=== PATIENT | male | born 1965 | race Hispanic/Latino ===

== ENCOUNTER 2018-10-23 08:33 | Emergency (ER) | payer SELFPAY ==
--- OUTSIDE RECORDS SUMMARY | 2018-10-23 08:35 | XMS REPORT | Clinical Summary ---
:1965 Author Organization [facility] Address [address] [place] [address] Care Team Providers Name Role Phone Unavailable Primary Care Provider Unavailable Allergies No Known Allergies Medications Medication Sig Dispensed Refills Start Date End Date Status Gel Dressing Apply 1 30 Each 0 05/11/2018 Active (DERMAGAUZE HYDROGEL Application to DRESSING) 4 X 4 " affected area BndgIndications: daily. Diabetic ulcer of midfoot associated with diabetes mellitus due to underlying condition, with other ulcer severity, unspecified laterality cycloSPORINE in Instill 2 Drops 30 mL 0 05/11/2018 Active polyvinyl alcohol in right eye 5 ophthalmic solution times daily as ophthalmic solution needed (red eye -CMPDIndications: irritation). Dry eyes, bilateral amoxicillin-clavulan Take 1 tablet by 28 tablet 3 04/23/2018 07/12/2018 ate (AUGMENTIN) mouth 2 times 875-125 mg per daily for 14 tabletIndications: days. Open wound of right foot, initial encounter, Type 2 diabetes mellitus with diabetic neuropathic arthropathy, unspecified whether cap sizer insulin use clindamycin (CLEOCIN Take 1 capsule by 42 capsule 3 04/23/2018 07/12/2018 HCL) 300 mg mouth 3 times capsuleIndications: daily for 14 Open wound of right days. foot, initial encounter, Type 2 diabetes mellitus with diabetic neuropathic arthropathy, unspecified whether cap sizer insulin use erythromycin Instill 0.5 3.5 g 0 04/29/2018 05/06/2018 (ROMYCIN) 5 mg/gram Inches in right (0.5 %) ophthalmic eye at bedtime ointmentIndications: nightly for 7 Acute conjunctivitis days. of right eye, unspecified acute conjunctivitis type Active Problems Problem Noted Date Moderate nonproliferative diabetic retinopathy of both eyes associated 2017 with type 2 diabetes mellitus Dry eyes, bilateral 05/11/2018 Encounters Date Type Specialty Care Team Description 05/11/2018 Emergency Emergency Medicine Luis Carlos Liang, Diabetic ulcer of midfoot associated with diabetes mellitus due to underlying condition, with other ulcer severity, unspecified laterality (Primary Dx); Alhaji Claros MD Dry eyes, bilateral 05/11/2018 Office Visit Ophthalmology Heron Katz, Dry eyes, bilateral (Primary Dx); Moderate nonproliferative diabetic retinopathy of both eyes associated with type 2 diabetes mellitus, macular edema presence unspecified 04/29/2018 Emergency Emergency Medicine Karime Morejon, Acute conjunctivitis of MD right eye, unspecified acute conjunctivitis type (Primary Dx) 04/23/2018 Emergency Emergency Medicine Alhaji Macias, Open wound of right foot, initial encounter (Primary Dx); Type 2 diabetes mellitus with diabetic neuropathic arthropathy, unspecified whether cap sizer insulin use after 10/22/2017 Social History Tobacco Use Types Packs/Day Years Used Date Never Assessed Sex Assigned at Date Recorded Not on file Job Start Date Occupation Industry Not on file Not on file Not on file Travel History Travel Start Travel End No recent travel history available. Last Filed Vital Signs Vital Sign Reading Time Taken Blood Pressure 142/80 05/11/2018 6:28 PM CDT Pulse 81 05/11/2018 6:28 PM CDT Temperature 36.9 C (98.4 F) 05/11/2018 6:28 PM CDT Respiratory Rate 18 05/11/2018 6:28 PM CDT Oxygen Saturation 99% 05/11/2018 6:28 PM CDT Inhaled Oxygen Concentration - - Weight 81.8 kg (180 lb 6.4 oz) 04/29/2018 10:08 AM CDT Height - - Body Mass Index - - Plan of Treatment Health Maintenance Due Date Last Done Comments DM HGBA1C (Yearly) 1965 DM Foot Exam (Yearly) 1981 DM Microalbumin Urine Scrn (Yearly) 1981 DM Retinal Exam (Yearly) 1981 Colorectal Cancer Scrn Annual (FIT/FOBT) Age 50 to 75 2013 IMM Influenza Seasonal May to October (>/=19 yrs) 05/04/2018 Procedures Procedure Name Priority Date/Time Associated Diagnosis Comments BMP POC Routine 05/11/2018 1:02 PM Results for this CDT procedure are in the results section. GLUCOSE POC Routine 05/11/2018 11:48 AM Results for this CDT procedure are in the results section. GLUCOSE POC Routine 04/29/2018 10:10 AM Results for this CDT procedure are in the results section. GLUCOSE POC Routine 04/23/2018 1:38 PM Results for this CDT procedure are in the results section. after 10/22/2017 Results BMP POC (05/11/2018 1:02 PM CDT) CO2 POC 26Comment: 21 - 32 [facility] Physician mmol/L 1 Notified Chloride POC 101 98 - 107 [facility] mmol/L 1 Potassium POC 4.6 3.50 - 5.10 [facility] mmol/L 1 Sodium POC 140 136 - 145 [facility] mmol/L 1 Glucose POC 175 (H) 74 - 106 [facility] mg/dL 1 Urea Nitrogen POC 13 7 - 18 mg/dL [facility] 1 Creatinine POC 0.7 0.6 - 1.3 [facility] mg/dL 1 Calcium Ionized POC 1.29 1.15 - 1.29 [facility] mmol/L 1 Hemoglobin POC 13.9 (L) 14.0 - 18.0 [facility] g/dL 1 Hematocrit POC 41.0 40.0 - 54.0 % [facility] 1 GFR, Estimated >60 mL/min/1.73 [facility] m2 1 GFR, Estim, Afr-Am >60 mL/min/1.73 [facility] m2 1 Performing Organization Address City/State/Zipcode Phone Number [facility] 1 GLUCOSE POC (05/11/2018 11:48 AM CDT)Only the most recent of3 resultswithin the time period is included. Glucose POC 226 (H) 74 - 106 mg/dL [facility] 1 Performing Organization Address City/State/Zipcode Phone Number [facility] 1 after 10/22/2017 Insurance Payer Benefit Plan / Subscriber ID Effective Dates Phone Address Type Group HCHD HCHD UNSCREENED xxxxxxxxx 2018-Prese [phone] [id number] [place] [address] (Home) [address] [place] [address]
--- OUTSIDE RECORDS SUMMARY | 2018-10-23 08:36 | XMS REPORT | Clinical Summary ---
:1965 Author Organization [facility] Address [address] [place] [address] Care Team Providers Name Role Phone System, Provider Not In MD Primary Care Provider Unavailable Allergies No Known Allergies Medications Medication Sig Dispensed Refills Start Date End Date Status amoxicillin (AMOXIL) Take 500 mg by 0 Active 500 MG capsule mouth 3 (three) times a day. doxycycline Take 100 mg by 0 Active (VIBRAMYCIN) 100 MG mouth 2 (two) capsule times a day. Active Problems Not on file Encounters Date Type Specialty Care Team Description 04/22/2018 - Emergency Emergency Medicine Larry Finley Diabetic ulcer of right 04/23/2018 MD Siddhartha foot associated with diabetes mellitus due to underlying condition, unspecified part of foot, unspecified ulcer stage (Primary Dx) after 10/22/2017 Social History Tobacco Use Types Packs/Day Years Used Date Heavy Tobacco Smoker Smokeless Tobacco: Never Used Alcohol Use Drinks/Week oz/Week Comments No Sex Assigned at Date Recorded Not on file Job Start Date Occupation Industry Not on file Not on file Not on file Travel History Travel Start Travel End No recent travel history available. Last Filed Vital Signs Vital Sign Reading Time Taken Blood Pressure 185/95 04/23/2018 12:24 AM CDT Pulse 65 04/23/2018 12:24 AM CDT Temperature 37.1 C (98.7 F) 04/23/2018 12:24 AM CDT Respiratory Rate 20 04/23/2018 12:24 AM CDT Oxygen Saturation 100% 04/23/2018 12:24 AM CDT Inhaled Oxygen Concentration - - Weight 81.2 kg (179 lb) 04/22/2018 7:21 PM CDT Height 167.6 cm (5' 6") 04/22/2018 7:21 PM CDT Body Mass Index 28.89 04/22/2018 7:21 PM CDT Plan of Treatment Health Maintenance Due Date Last Done Comments DIABETIC RETINAL EYE EXAM 1965 DIABETIC FOOT EXAM 1973 URINE MICROALBUMIN 1973 COLON CANCER SCREENING 2013 SHINGLES VACCINES (#1) 2013 INFLUENZA VACCINE 03/04/2018 Procedures Procedure Name Priority Date/Time Associated Comments Diagnosis MRI FOOT WO CONTRAST STAT 04/22/2018 11:02 Results for this RIGHT PM CDT procedure are in the results section. XR FOOT 2 VW RIGHT STAT 04/22/2018 9:29 Results for this PM CDT procedure are in the results section. ESTIMATED GFR STAT 04/22/2018 7:57 Results for this PM CDT procedure are in the results section. COMPREHENSIVE STAT 04/22/2018 7:57 Results for this METABOLIC PANEL PM CDT procedure are in the results section. HC COMPLETE BLD COUNT STAT 04/22/2018 7:57 Results for this W/AUTO DIFF PM CDT procedure are in the results section. after 10/22/2017 Results MRI Foot Wo Contrast Right (04/22/2018 11:02 PM CDT) Narrative Performed At MRI OF THE RIGHT FOREFOOT AND MIDFOOT WITHOUT CONTRAST. [facility] INDICATION:Osteomyelitis TECHNIQUE:Multiplanar, multisequence MR images were obtained. COMPARISON:Radiograph, same day FINDINGS: Evidence for plantar cutaneous thickening and a soft tissue ulceration at the level of the mid fifth metatarsal. No focal fluid collection with thickened peripheral rim to suggest abscess. The T1 hyperintense marrow signal is identified. No abnormal marrow edema is seen. There is no evidence for osteomyelitis on the current examination. Evidence for a remote, healed fifth metatarsal fracture. No acute, displaced osseous fracture or dislocation is seen. Scattered degenerative edema identified within the mid foot. Partially visualized ligaments and tendons appear intact. IMPRESSION: Plantar cutaneous thickening and a small ulceration at the level of the fifth metatarsal. No MR evidence for drainable focal fluid collection or osteomyelitis. [facility]-[id number] Procedure Note Interface, Radiology Results Incoming - 04/22/2018 11:33 PM CDT MRI OF THE RIGHT FOREFOOT AND MIDFOOT WITHOUT CONTRAST. INDICATION: Osteomyelitis TECHNIQUE: Multiplanar, multisequence MR images were obtained. COMPARISON: Radiograph, same day FINDINGS: Evidence for plantar cutaneous thickening and a soft tissue ulceration at the level of the mid fifth metatarsal. No focal fluid collection with thickened peripheral rim to suggest abscess. The T1 hyperintense marrow signal is identified. No abnormal marrow edema is seen. There is no evidence for osteomyelitis on the current examination. Evidence for a remote, healed fifth metatarsal fracture. No acute, displaced osseous fracture or dislocation is seen. Scattered degenerative edema identified within the mid foot. Partially visualized ligaments and tendons appear intact. IMPRESSION: Plantar cutaneous thickening and a small ulceration at the level of the fifth metatarsal. No MR evidence for drainable focal fluid collection or osteomyelitis. [facility]-[id number] Performing Organization Address [facility] Phone Number [facility] [address] [place] [address] XR Foot 2 Vw Right (04/22/2018 9:29 PM CDT) Narrative Performed At EXAM:XR FOOT 2 VW RIGHT [facility] CLINICAL HISTORY:Osteomyelitis suspectedfoot swellingdiabetic COMPARISON:None. IMPRESSION: 1.Extensive hindfoot degenerative changes are identified. Pes cavus is noted. Plantar cutaneous ulceration identified at the level of the fifth metatarsal on the lateral view. There are no radiopaque foreign bodies. There are no focal bony erosions or periostitis. No evidence of acute, displaced right foot fracture or dislocation. Small plantar calcaneal spur noted. [facility]-[id number] Procedure Note Hm Interface, Radiology Results Incoming - 04/22/2018 9:44 PM CDT EXAM: XR FOOT 2 VW RIGHT CLINICAL HISTORY: Osteomyelitis suspected foot swelling diabetic COMPARISON: None. IMPRESSION: 1. Extensive hindfoot degenerative changes are identified. Pes cavus is noted. Plantar cutaneous ulceration identified at the level of the fifth metatarsal on the lateral view. There are no radiopaque foreign bodies. There are no focal bony erosions or periostitis. No evidence of acute, displaced right foot fracture or dislocation. Small plantar calcaneal spur noted. [facility]-[id number] Performing Organization Address [facility] Phone Number [facility] [address] [place] [address] Estimated GFR (04/22/2018 7:57 PM CDT) Estimated GFR >=90 mL/min/1.[address] [facility] DEPARTMENT OF Comment: PATHOLOGY AND GENOMIC CatergoryUnitsInterpretation MEDICINE G1 >=90 Normal or high G2 60-89Mildly decreased V1d83-28Vsocve to moderately decreased [id number] to severely decreased G4 15-29Severely decreased G5 <15Kidney failure The eGFR was calculated using the Chronic Kidney Disease Epidemiology Collaboration (CKD-EPI) equation. Interpretation is based on recommendations of the National Kidney Foundation-Kidney Disease Outcomes Quality Initiative (NKF-KDOQI) published in 2014. Specimen Plasma specimen Performing Organization Address City/[facility]/Zipcode Phone Number [facility] OF PATHOLOGY AND [address] [place] [address] [employer] MEDICINE CBC with platelet and differential (04/22/2018 7:57 PM CDT) WBC 8.3 4.2 - 11.0 k/uL [facility] DEPARTMENT OF PATHOLOGY AND GENOMIC MEDICINE RBC 4.61 4.04 - 5.86 m/uL [facility] DEPARTMENT OF PATHOLOGY AND GENOMIC MEDICINE HGB 12.8 (L) 13.0 - 17.3 g/dL [facility] DEPARTMENT OF PATHOLOGY AND GENOMIC MEDICINE HCT 39.7 34.0 - 45.0 % [facility] DEPARTMENT OF PATHOLOGY AND GENOMIC MEDICINE MCV 86.1 80.0 - 98.[address] [facility] DEPARTMENT OF PATHOLOGY AND GENOMIC MEDICINE MCH 27.8 27.0 - 34.[address] [facility] DEPARTMENT OF PATHOLOGY AND GENOMIC MEDICINE MCHC 32.2 31.5 - 36.5 g/dL [facility] DEPARTMENT OF PATHOLOGY AND GENOMIC MEDICINE RDW - SD 41.0 37.0 - 51.[address] [facility] DEPARTMENT OF PATHOLOGY AND GENOMIC MEDICINE MPV 10.4 7.4 - 10.[address] [facility] DEPARTMENT OF PATHOLOGY AND GENOMIC MEDICINE Platelet count 278 150 - 400 k/uL [facility] DEPARTMENT OF PATHOLOGY AND GENOMIC MEDICINE Nucleated RBC 0.00 /[address] [facility] DEPARTMENT OF PATHOLOGY AND GENOMIC MEDICINE Neutrophils 52.4 36.0 - 66.0 % [facility] DEPARTMENT OF PATHOLOGY AND GENOMIC MEDICINE Lymphocytes 34.5 24.0 - 44.0 % [facility] DEPARTMENT OF PATHOLOGY AND GENOMIC MEDICINE Monocytes 9.0 (H) 0.0 - 6.0 % [facility] DEPARTMENT OF PATHOLOGY AND GENOMIC MEDICINE Eosinophils 3.3 0.0 - 6.0 % [facility] DEPARTMENT OF PATHOLOGY AND GENOMIC MEDICINE Basophils 0.6 0.0 - 1.2 % [facility] DEPARTMENT OF PATHOLOGY AND GENOMIC MEDICINE Immature granulocytes 0.2 0.0 - 1.0 % [facility] DEPARTMENT OF PATHOLOGY AND GENOMIC MEDICINE Specimen Blood Performing Organization Address City/[facility]/Zipcode Phone Number [facility] DEPARTMENT OF PATHOLOGY AND [address] [place] [address] [facility] Comprehensive metabolic panel (04/22/2018 7:57 PM CDT) Sodium 138 135 - 150 mEq/L [facility] DEPARTMENT OF PATHOLOGY AND GENOMIC MEDICINE Potassium 4.4 3.5 - 5.0 mEq/L [facility] DEPARTMENT OF PATHOLOGY AND GENOMIC MEDICINE Chloride 100 98 - 112 mEq/L [facility] DEPARTMENT OF PATHOLOGY AND GENOMIC MEDICINE CO2 28 24 - 31 mmol/L [facility] DEPARTMENT OF PATHOLOGY AND GENOMIC MEDICINE Anion gap 10@ANIO 7 - 15 mEq/L [facility] DEPARTMENT OF PATHOLOGY AND GENOMIC MEDICINE BUN 19 (H) 7 - 18 mg/dL [facility] DEPARTMENT OF PATHOLOGY AND GENOMIC MEDICINE Creatinine 0.70 0.70 - 1.20 mg/dL [facility] DEPARTMENT OF PATHOLOGY AND GENOMIC MEDICINE Glucose 263 (H) 65 - 100 mg/dL [facility] DEPARTMENT OF PATHOLOGY AND GENOMIC MEDICINE Calcium 9.3 8.3 - 10.2 mg/dL [facility] DEPARTMENT OF PATHOLOGY AND GENOMIC MEDICINE Protein 7.3 6.3 - 8.3 g/dL [facility] DEPARTMENT OF PATHOLOGY AND GENOMIC MEDICINE Albumin 3.5 3.5 - 5.0 g/dL [facility] DEPARTMENT OF PATHOLOGY AND GENOMIC MEDICINE A/G ratio 0.9 0.7 - 3.8 [facility] DEPARTMENT OF PATHOLOGY AND GENOMIC MEDICINE Alkaline phosphatase 61 0 - 129 U/L [facility] DEPARTMENT OF PATHOLOGY AND GENOMIC MEDICINE AST 16 10 - 50 U/L [facility] DEPARTMENT OF PATHOLOGY AND GENOMIC MEDICINE ALT 18 5 - 50 U/L [facility] DEPARTMENT OF PATHOLOGY AND GENOMIC MEDICINE Total bilirubin 0.3 0.2 - 1.2 mg/dL [facility] DEPARTMENT OF PATHOLOGY AND [employer] MEDICINE Specimen Plasma specimen Performing Organization Address City/State/Zipcode Phone Number [facility] DEPARTMENT OF PATHOLOGY AND [address] [place] [address] [facility] after 10/22/2017 Advance Directives Patient has advance care planning documents on file. For more information, please contact:[place] [address]
--- OUTSIDE RECORDS SUMMARY | 2018-10-23 08:36 | XMS REPORT ---
:1965 [facility] [address] [place] [address] [address]. [address] [place] [address] Care Team Providers Name Role Phone Unavailable Unavailable Unavailable Payers Payer Name Policy Type Policy Number Effective Date Expiration Date Problems This patient has no known problems. Allergies, Adverse Reactions, Alerts Allergy Allergy Status Severity Reaction(s) Onset Inactive Treating Comments Name Type Date Date Clinician No Known DA Active U 2018-08 Allergies -21 00:00:0 0 No Known DA Active U 2005-04 Contrast - Allergies 00:00:0 0 No Known DA Active U 2005-04 Drug - Allergies 00:00:0 0 No Known DA Active U 2005-04 Food - Allergies 00:00:0 0 No Known DA Active U 2005-04 Other - Allergies 00:00:0 0 Medications This patient has no known medications. Encounters Start End Encounter Admission Attending Care Care Encounter Date/Time Date/Time Type Type Clinicians Facility Department ID 2018-05-11 2018-05-11 Emergency [facility] [id number] 12:00:13 12:00:13 2018-05-11 2018-05-11 Outpatient [facility] [id number] 00:00:00 00:00:00 2018-04-29 2018-04-29 Emergency [facility] [id number] 11:13:38 11:13:38 2018-04-23 2018-04-23 Emergency [facility] [id number] 17:31:25 17:31:25 Results Test Description Test Time Test Comments Text Results Atomic Results Result Comments - XR 2018-09-29 [place]: St: CHEST 01:57:00 REG 2 V Name: DALE AGUILAR : 1965 Age/S: 53/M [address] Unit # : [id number] Loc: [place] [address] Phys : Fabio Butcher DO Acct : [id number] Dis Date: Status: REG ER PHONE #: [phone] Exam Date: 09/29/2018 0025 FAX #: [phone] Reason: cough EXAMS: CPT CODE: [id number] XR CHEST 2 V 96841 LOCATION : T18 EXAM: CHEST 2 VIEWS INDICATION: cough COMPARISON: Chest x-ray September 28, 2017 at 2302 hours. TECHNIQUE: PA and lateral chest radiographs. FINDINGS: Left mid lung infiltrates and left basilar infiltrates present. Right lung is clear. No pleural effusion is identified. Heart and mediastinum are normal in size and contour. Bones and peripheral soft tissues are unremarkable. IMPRESSION: Left midlung and left lung base infiltrates concerning for infection. Electronically Signed by Misha Robledo MD on 2018 at 0157 Reported and signed by: Misha Robledo MD CC: Technologist: Axel Freeman Date/Time/ By: 09/29/2018 (0157) : By: [email or web address] PAGE 1 Signed Report [place]: St: REG --------- Name: DALE AGUILAR : 1965 Age/S: 53/M [address] Unit # : [id number] Loc: [place] [address] Phys : Fabio Butcher DO Acct : [id number] Dis Date: Status: REG ER PHONE #: [phone] Exam Date: 09/29/2018 0025 FAX #: [phone] Reason: cough EXAMS: CPT CODE: [id number] XR CHEST 2 V 74669 <Continued> Orig Print D/T: S: 09/29/2018 (0203) PAGE 2 Signed Report TROPONIN I RAPID 2018-09-29 01:15:00 Test Item Value Reference Range Comments TROPONIN I RAPID (test 0.02 ng/mL 0.00-0.079 ISTAT TROPONIN I code=TROPIRAP) CRITERIA0.00-0.08 ng/mL - Negative>0.08 ng/mL - Positive The use of serial sampling and testing protocol is arecommended practice.An elevated troponin level alone is often not sufficient fordiagnosis of myocardial infarction. Troponin results obtained by different assays may vary.Evaluation of the extent of myocardial damage based onincrease of troponin would be valid only if similarmethodology is used. LACTIC ACID [id number] 00:58:00 Test Item Value Reference Range Comments LACTIC ACID POC (test code=LACTP) 0.96 mmol/L 0.7-2.0 BASIC METABOLIC [id number] 00:55:00 Test Item Value Reference Range Comments SODIUM (test code=NA) 137 mmol/L 137-145 POTASSIUM (test code=K) 4.0 mmol/L 3.4-5.0 CHLORIDE (test code=CL) 101 mmol/L 98-107 CARBON DIOXIDE (test 29 mmol/L 22-30 code=CO2) GLUCOSE (test code=GLU) 237 mg/dL 74-106 BLOOD UREA NITROGEN (test 19 mg/dL 9-20 code=BUN) GLOMERULAR FILTRATION >=60 max estimate >60 The estimated glomerular RATE (test code=GFR) filtration rate is computed usingpatient race, age (>18), sex, and serum creatinine. If anyof the needed data elements are missing the Laboratory cannot compute an estimation of the glomerular filtration rate. CREATININE (test 0.7 mg/dL 0.7-1.3 code=CREAT) CALCIUM (test code=CA) 8.8 mg/dL 8.4-10.2 LIVER FUNCTION [id number] 00:55:00 Test Item Value Reference Range Comments TOTAL PROTEIN (test code=PROT) 7.5 g/dL 6.3-8.2 ALBUMIN (test code=ALB) 3.6 g/dL 3.5-5.0 BILIRUBIN TOTAL (test 0.2 mg/dL 0.2-1.3 code=BILT) BILIRUBIN CONJUGATED (test 0 mg/dL 0-0.3 ~~~~~~~~~~~~~~~~~~~~~~~~~~~~~ code=BILCON) ~~~~~~~~~~~~~~~~~~~~~~~~~~~~~ ~~CONJUGATED BILIRUBIN IS THE REPLACEMENT ASSAY FOR DIRECTBILIRUBIN.~~~~~~~~~~~~~ ~~~~~~~~~~~~~~~~~~~~~~~~~~~~~ ~~~~~~~~~~~~~~~~~~ BILIRUBIN UNCONJUGATED (test 0 mg/dL 0-1.1 code=BILUNC) SGOT/AST (test code=AST) 20 U/L 15-46 SGPT/ALT (test code=ALT) 28 U/L 13-69 ALKALINE PHOSPHATASE (test 62 U/L 38-126 code=ALKP) NT PRO-BRAIN NATRIURETIC [id number] 00:55:00 Test Item Value Reference Range Comments NT PRO-BRAIN NATRIURETIC 870 pg/mL 0-299 ~~~~~~~~~~~~~~~~~~~~~~~~~~~~~~~ PEPTI (test code=PROBNP) ~~~~~~~~~~~~~~~~~~~~~~~~~~~~~NT PRO-BNP IS THE REPLACEMENT ASSAY FOR BNP.~~~~~~~~~~~~~~~~~~~~~~~~~~~ ~~~~~~~~~~~~~~~~~~~~~~~~~~~~~~~ ~~RULE-IN CUT POINTS FOR PATIENTS WITH SUSPECTED ACUTECONGESTIVE HEART FAILURE:<50 yrs old: >450 pg/mL50-75 yrs old: >900 pg/mL>75 yrs old: >1800 pg/mL A positive bias may occur on patients taking BIOTINsupplements. PROCALCITONIN (PCT)2018-09-29 00:50:00 Test Item Value Reference Range Comments PROCALCITONIN (PCT) (test < 0.05 NG/ML code=PROCAL) Procalcitonin (PCT) Normal Value: <0.05 NG/ML <0.5 NG/ML - low risk of severe sepsis and/or septic shock>2.0 NG/ML - high risk of severe sepsis and/or septic shock PCT concentrations between 0.5 and 2.0 NG/ML should beinterpreted taking into account the patient's history.It is recommended to retest PCT within 6-24 hours if anyconcentrations between 0.5-2.0 NG/ML are obtained. BASIC METABOLIC [id number] 00:41:00 Test Item Value Reference Range Comments SODIUM (test code=NA) 137 mmol/L 137-145 POTASSIUM (test code=K) 4.0 mmol/L 3.4-5.0 CHLORIDE (test code=CL) 101 mmol/L 98-107 CARBON DIOXIDE (test 29 mmol/L 22-30 code=CO2) GLUCOSE (test code=GLU) 237 mg/dL 74-106 BLOOD UREA NITROGEN (test 19 mg/dL 9-20 code=BUN) GLOMERULAR FILTRATION >=60 max estimate >60 The estimated glomerular RATE (test code=GFR) filtration rate is computed usingpatient race, age (>18), sex, and serum creatinine. If anyof the needed data elements are missing the Laboratory cannot compute an estimation of the glomerular filtration rate. CREATININE (test 0.7 mg/dL 0.7-1.3 code=CREAT) CALCIUM (test code=CA) 8.8 mg/dL 8.4-10.2 LIVER FUNCTION [id number] 00:41:00 Test Item Value Reference Range Comments TOTAL PROTEIN (test code=PROT) 7.5 g/dL 6.3-8.2 ALBUMIN (test code=ALB) 3.6 g/dL 3.5-5.0 BILIRUBIN TOTAL (test 0.2 mg/dL 0.2-1.3 code=BILT) BILIRUBIN CONJUGATED (test 0 mg/dL 0-0.3 ~~~~~~~~~~~~~~~~~~~~~~~~~~~~~ code=BILCON) ~~~~~~~~~~~~~~~~~~~~~~~~~~~~~ ~~CONJUGATED BILIRUBIN IS THE REPLACEMENT ASSAY FOR DIRECTBILIRUBIN.~~~~~~~~~~~~~ ~~~~~~~~~~~~~~~~~~~~~~~~~~~~~ ~~~~~~~~~~~~~~~~~~ BILIRUBIN UNCONJUGATED (test 0 mg/dL 0-1.1 code=BILUNC) SGOT/AST (test code=AST) 20 U/L 15-46 SGPT/ALT (test code=ALT) 28 U/L 13-69 ALKALINE PHOSPHATASE (test 62 U/L 38-126 code=ALKP) NT PRO-BRAIN NATRIURETIC [id number] 00:41:00 Test Item Value Reference Range Comments NT PRO-BRAIN NATRIURETIC PEPTI (test code=PROBNP) pg/mL 0-299 CBC W/AUTO [id number] 00:28:00 Test Item Value Reference Range Comments WHITE BLOOD CELL (test code=WBC) 8.6 x10 3/uL 5.0-12.0 RED BLOOD CELL (test code=RBC) 4.43 x10 6/uL 4.70-6.10 HEMOGLOBIN (test code=HGB) 11.6 g/dL 14.0-18.0 HEMATOCRIT (test code=HCT) 36.6 % 37.0-49.0 MEAN CELL VOLUME (test code=MCV) 83 fL 80-94 MEAN CELL HGB (test code=MCH) 26.2 pg 27-31 MEAN CELL HGB CONCENTRATION (test code=MCHC) 31.7 g/dL 33-37 RED CELL DISTRIBUTION WIDTH (test code=RDW) 14.0 % 11.5-15.5 PLATELET COUNT (test code=PLT) 346 x10 3/uL 130-400 MEAN PLATELET VOLUME (test code=MPV) 10.4 fL 9.4-16.4 NEUTROPHIL % (test code=NT%) 45.4 % 43-65 IMMATURE GRANULOCYTE % (test code=IG%) 0.4 % 0.0-2.0 LYMPHOCYTE % (test code=LY%) 38.8 % 20.5-45.5 MONOCYTE % (test code=MO%) 10.3 % 5.5-11.7 EOSINOPHIL % (test code=EO%) 4.6 % 0.9-2.9 BASOPHIL % (test code=BA%) 0.5 % 0.2-1.0 NEUTROPHIL # (test code=NT#) 3.89 x10 3/uL 2.2-4.8 IMMATURE GRANULOCYTE # (test code=IG#) 0.03 x10 3/uL 0-0.03 LYMPHOCYTE # (test code=LY#) 3.32 x10 3/uL 1.3-2.9 MONOCYTE # (test code=MO#) 0.88 x10 3/uL 0.3-0.8 EOSINOPHIL # (test code=EO#) 0.39 x10 3/uL 0.0-0.2 BASOPHIL # (test code=BA#) 0.04 x10 3/uL 0.0-0.1 - XR CHEST 1 [id number] 23:17:00 [place]: St: REG Name: DALE AGUILAR : 1965 Age/S: 53/M [address] Unit#: [id number] Loc: [place] [address] Phys: Chintan Erwin MD Acct: [id number] Dis Date: Status: REG ER PHONE #: [phone] Exam Date: 09/28/20185 FAX #: [phone] Reason: FEVER COUGH SOB EXAMS: CPT CODE: [id number] XR CHEST 1 V 86639 AFTER HOURS SERVICE ON: 09/28/2018 11:17 PM AP Portable Chest Location Code M12 HISTORY: FEVER COUGH SOB FINDINGS: There are no infiltrates. There are no pleural effusions. There is no pneumothorax. Cardiac silhouette and mediastinum appear within normal limits. IMPRESSION: No active pulmonary findings. at 2317 Reported and signed by: Carlos Barcenas MD CC: Technologist: CYNTHIA MÉNDEZ Date/Time/By: 09/28/2018 (5722) : By: [email or web address] PAGE 1 Signed Report [place]: St: REG Name: DALE AGUILAR : 1965 Age/S: 53/M [address] Unit #: [id number] Loc: [place] [address] Phys: Chintan Erwin MD Acct: [id number] Dis Date: Status: REG ER PHONE #: [phone] Exam Date: 09/28/2018 2305 FAX #: [phone] Reason: FEVER COUGH SOB EXAMS: CPT CODE: [id number] XR CHEST 1 V 75825 < Continued> Orig Print D/T: S: 09/28/2018 (7870) PAGE 2 Signed ReportPROCALCITONIN (PCT) 2018-08-24 16:41:00 Test Item Value Reference Range Comments PROCALCITONIN (PCT) (test < 0.05 NG/ML code=PROCAL) Procalcitonin (PCT) Normal Value: <0.05 NG/ML <0.5 NG/ML - low risk of severe sepsis and/or septic shock>2.0 NG/ML - high risk of severe sepsis and/or septic shock PCT concentrations between 0.5 and 2.0 NG/ML should beinterpreted taking into account the patient's history.It is recommended to retest PCT within 6-24 hours if anyconcentrations between 0.5-2.0 NG/ML are obtained. UA RFLX MICR CULT IF [id number] 16:17:00 Test Item Value Reference Range Comments UA COLOR (test code=COLU) Yellow Yellow UA APPEARANCE (test Slightly-Cloudy Clear code=APPU) UA GLUCOSE DIPSTICK (test >=500 (3+) Negative code=DGLUU) UA BILIRUBIN DIPSTICK (test Negative Negative code=BILU) UA KETONE DIPSTICK (test Negative mg/dL Negative code=KETU) UA SPECIFIC GRAVITY (test 1.016 <1.030 code=SGU) UA BLOOD DIPSTICK (test 1+ Negative code=LIAN) UA PH DIPSTICK (test 6.0 5.0-8.0 code=GOMEZ) UA PROTEIN DIPSTICK (test 100 (2+) mg/dL Negative code=PROU) UA UROBILINOGEN DIPSTICK 2.0 mg/dL Negative (test code=URO) UA NITRITE DIPSTICK (test Negative Negative code=KRISTOFER) UA LEUKOCYTE ESTERASE NEGATIVE Negative DIPSTICK (test code=LEUU) UA WBC (test code=WBCUR) 0-3 /HPF <4-5 <10 WBC/HPF=PYURIA ABSENT URINE CULTURE NOT INDICATED UA RBC (test code=RBCU) 6-10 /HPF <4-5 UA BACTERIA (test code=BACU) None /HPF None-Rare UA SQUAMOUS CELLS (test 0-5 (RARE) /HPF 0-5 (RARE) code=SQU) UA HYALINE CAST (test 4-5 /LPF <4-5 code=HYALU) UA MUCUS (test code=MUCU) 2+ /LPF <Rare less than 18 yrs old, neutropenic, or urological surgery? NOPrimary Indication for Culture: Sev Sepsis No Oth SourceBASIC METABOLIC [id number] 16:06:00 Test Item Value Reference Range Comments SODIUM (test code=NA) 141 mmol/L 137-145 POTASSIUM (test code=K) 4.8 mmol/L 3.4-5.0 CHLORIDE (test code=CL) 99 mmol/L 98-107 CARBON DIOXIDE (test 33 mmol/L 22-30 code=CO2) GLUCOSE (test code=GLU) 297 mg/dL 74-106 BLOOD UREA NITROGEN (test 16 mg/dL 9-20 code=BUN) GLOMERULAR FILTRATION >=60 max estimate >60 The estimated glomerular RATE (test code=GFR) filtration rate is computed usingpatient race, age (>18), sex, and serum creatinine. If anyof the needed data elements are missing the Laboratory cannot compute an estimation of the glomerular filtration rate. CREATININE (test 0.66 mg/dL 0.66-1.25 code=CREAT) CALCIUM (test code=CA) 9.1 mg/dL 8.4-10.2 LIVER FUNCTION [id number] 16:06:00 Test Item Value Reference Range Comments TOTAL PROTEIN (test code=PROT) 8.3 g/dL 6.3-8.2 ALBUMIN (test code=ALB) 3.8 g/dL 3.5-5.0 BILIRUBIN TOTAL (test 0.3 mg/dL 0.2-1.3 code=BILT) BILIRUBIN CONJUGATED (test 0 mg/dL 0-0.3 ~~~~~~~~~~~~~~~~~~~~~~~~~~~~~ code=BILCON) ~~~~~~~~~~~~~~~~~~~~~~~~~~~~~ ~~CONJUGATED BILIRUBIN IS THE REPLACEMENT ASSAY FOR DIRECTBILIRUBIN.~~~~~~~~~~~~~ ~~~~~~~~~~~~~~~~~~~~~~~~~~~~~ ~~~~~~~~~~~~~~~~~~ BILIRUBIN UNCONJUGATED (test 0 mg/dL 0-1.1 code=BILUNC) SGOT/AST (test code=AST) 23 U/L 15-46 SGPT/ALT (test code=ALT) 16 U/L 13-69 ALKALINE PHOSPHATASE (test 70 U/L 38-126 code=ALKP) TROPONIN I [id number] 16:02:00 Test Item Value Reference Range Comments TROPONIN I RAPID (test 0.01 ng/mL 0.00-0.079 ISTAT TROPONIN I code=TROPIRAP) CRITERIA0.00-0.08 ng/mL - Negative>0.08 ng/mL - Positive The use of serial sampling and testing protocol is arecommended practice.An elevated troponin level alone is often not sufficient fordiagnosis of myocardial infarction. Troponin results obtained by different assays may vary.Evaluation of the extent of myocardial damage based onincrease of troponin would be valid only if similarmethodology is used. LACTIC ACID [id number] 15:56:00 Test Item Value Reference Range Comments LACTIC ACID POC (test code=LACTP) 1.64 mmol/L 0.7-2.0 CBC W/AUTO [id number] 15:53:00 Test Item Value Reference Range Comments WHITE BLOOD CELL (test code=WBC) 8.3 x10 3/uL 5.0-12.0 RED BLOOD CELL (test code=RBC) 4.33 x10 6/uL 4.70-6.10 HEMOGLOBIN (test code=HGB) 11.6 g/dL 14.0-18.0 HEMATOCRIT (test code=HCT) 37.2 % 37.0-49.0 MEAN CELL VOLUME (test code=MCV) 86 fL 80-94 MEAN CELL HGB (test code=MCH) 26.8 pg 27-31 MEAN CELL HGB CONCENTRATION (test code=MCHC) 31.2 g/dL 33-37 RED CELL DISTRIBUTION WIDTH (test code=RDW) 13.4 % 11.5-15.5 PLATELET COUNT (test code=PLT) 396 x10 3/uL 130-400 MEAN PLATELET VOLUME (test code=MPV) 10.5 fL 9.4-16.4 NEUTROPHIL % (test code=NT%) 60.1 % 43-65 IMMATURE GRANULOCYTE % (test code=IG%) 0.2 % 0.0-2.0 LYMPHOCYTE % (test code=LY%) 28.6 % 20.5-45.5 MONOCYTE % (test code=MO%) 8.2 % 5.5-11.7 EOSINOPHIL % (test code=EO%) 2.3 % 0.9-2.9 BASOPHIL % (test code=BA%) 0.6 % 0.2-1.0 NUCLEATED RBC % (test code=NRBC%) 0.0 % 0-1.0 NEUTROPHIL # (test code=NT#) 4.96 x10 3/uL 2.2-4.8 IMMATURE GRANULOCYTE # (test code=IG#) 0.02 x10 3/uL 0-0.03 LYMPHOCYTE # (test code=LY#) 2.36 x10 3/uL 1.3-2.9 MONOCYTE # (test code=MO#) 0.68 x10 3/uL 0.3-0.8 EOSINOPHIL # (test code=EO#) 0.19 x10 3/uL 0.0-0.2 BASOPHIL # (test code=BA#) 0.05 x10 3/uL 0.0-0.1 - XR FOOT 3 + V [id number] 15:22:00 [place]: [address] St: REG Name: DALE AGUILAR [facility] : 1965 Age/S: 53/M [address] Unit#: [id number] Loc: [place] [address] Phys: Ana Dey [employer]STER PLANNER Acct: [id number] Dis Date: Status: REG ER PHONE #: [phone] Exam Date: 08/24/20181511 FAX #: [phone] Reason: foot wound, hx of DM EXAMS: CPT CODE : [id number] XR FOOT 3 + V RT 06667 Right foot History: foot wound, hx of DM Comparison: August 17, 2017 Location: R16 Three views of the right foot are submitted. No acute fractures and no dislocations are identified. There is a soft tissue ulcer involving the lateral foot. No bone destructive process is identified. IMPRESSION: There is a soft tissue ulcer involving the lateral right foot. There is no radiographic evidence of acute bone pathology. at 1522 Reported and signed by: Shivam Pabon MD CC: Technologist: Octavia Wetzelrd Date/Time/By: 08/24/2018 (1522) : By: Erik PAGE 1 Signed Report [place]: St: REG [facility] 1965 Age/S: 53[facility]M [address] Unit #: [id number] Loc: [place] [address] Phys : Ana Dey [employer]NER Acct: [id number] Dis Date: Status: REG ER PHONE #: [phone] Exam Date: 08/24/20181511 FAX #: [phone] Reason: foot wound, hx of DM EXAMS: CPT CODE: [id number] XR FOOT 3 + V RT 65389 <Continued& gt; Orig Print D/T: S: 08/24/2018 (8545) PAGE 2 Signed Report- XR CHEST 1 [id number] 15:20:00 [place]: St: REG Name: DALE AGUILAR [facility] : 1965 Age/S: 53/ M [address] Unit#: [id number] Loc: [place] [address] Phys: Ana Dey [employer] PLANNER Acct: [id number] Dis Date: Status : REG ER PHONE #: [phone] Exam Date: 08/24/2018 [facility] FAX #: [phone] Reason: CODE SEPSIS EXAMS: CPT CODE: [id number] XR CHEST 1 V 24255 Chest Radiograph History: CODE SEPSIS Comparison: None at this time Location: R16 A single frontal view of the chest is submitted. The heart is within normal limits in size. Pulmonary vasculature is unremarkable. The visualized lung wright appear to be free of disease. Thebones appear unremarkable. IMPRESSION: There is noradiographic evidence of acute cardiopulmonary disease. at 1520 Reported and signed by: Shivam Pbaon MD CC: Technologist: Octavia Wetzel Trnscrd Date/Time/By: 2018 (1520) : By: Erik PAGE 1 Signed Report [place]: St: REG Name: DALE AGUILAR [facility] : 1964 Age/S: 53/M [address] Unit #: [id number] Loc: [place] [address] Phys: Ana Dey MASTER PLANNER Acct: [id number] Dis Date: Status: REG ER PHONE #: [phone] Exam Date: 1512FAX #: [phone] Reason: CODE SEPSIS EXAMS: CPT CODE: [id number] XR CHEST 1 V 82697 <Continued> Orig Print D/T: S : 08/24/2018 (1523) PAGE 2 Signed Report
[2018-10-23] MEDS ORDERED: METHYLPREDNISOLONE 125 MG INJ ONE (09:06)
[2018-10-23] MEDS ORDERED: FAMOTIDINE 20 MG/2 ML VIAL IV ONE (09:07)
[2018-10-23] MEDS ORDERED: DIPHENHYDRAMINE 50 MG/ML VIAL ONE (09:07)
[2018-10-23] MEDS ORDERED: TETANUS & DIPHTHERIA TOX,ADULT 0.5 ML VIAL ONE (09:19)
--- NOTE | 2018-10-23 10:28 | ER ---
Nurse's Notes [facility] Name: Brant Marques Age: 53 yrs Sex: Male : 1965 Arrival Date: 10/23/2018 Time: 08:41 Bed 20 Private MD: Diagnosis: Insect bite (nonvenomous) of lip Presentation: 10/23 08:42 Presenting complaint: EMS states: pt was stung by a bee to the upper lip around 0600, sv then started feeling dizzy about 0740. Went to medical and stated his BP was high. EMS BP 211/119 HR-85 99% RA, BS-286. Pt stated that he hasn't taken his regular meds yet this morning. Transition of care: patient was not received from another setting of care. Onset: The symptoms/episode began/occurred suddenly, this morning. Anaphylaxis evaluation, no signs or symptoms of anaphylaxis were noted. Onset of symptoms was October 23, 2018. Risk Assessment: Do you want to hurt yourself or someone else? Patient reports no desire to harm self or others. Initial Sepsis Screen: Does the patient meet any 2 criteria? No. Patient's initial sepsis screen is negative. Does the patient have a suspected source of infection? No. Patient's initial sepsis screen is negative. Care prior to arrival: Glucose check: 286. 08:42 Method Of Arrival: EMS: [facility] sv 08:42 Acuity: KM 3 sv Triage Assessment: 08:47 General: Appears in no apparent distress. comfortable, well groomed, well developed, sv Behavior is calm, cooperative, appropriate for age. Pain: Denies pain. EENT: No signs and/or symptoms were reported regarding the EENT system. Neuro: Level of Consciousness is awake, alert, obeys commands, Oriented to person, place, time, situation, Moves all extremities. Full function Gait is steady, Speech is normal. Cardiovascular: Denies chest pain, shortness of breath, Patient's skin is warm and dry. Respiratory: Airway is patent Respiratory effort is even, unlabored, Respiratory pattern is regular, symmetrical. Derm: Skin is pink, warm \T\ dry. Musculoskeletal: Range of motion: intact in all extremities, Swelling present in upper vermilion border and upper lip. Injury Description: Bite sustained to upper vermilion border caused by a wasp, is from insect was sustained 1-2 hours ago. Historical: - Allergies: 08:47 No Known Allergies; sv - PMHx: 08:47 Diabetes - NIDDM; Hypertension; sv - PSHx: 08:47 stent; sv - Immunization history:: Adult Immunizations up to date. - Social history:: Smoking status: Patient uses tobacco products, smokes one-half pack cigarettes per day. - Ebola Screening: : No symptoms or risks identified at this time. Screenin:49 Abuse screen: Denies threats or abuse. Denies injuries from another. Nutritional sv screening: No deficits noted. Tuberculosis screening: Fall Risk None identified. Assessment: 09:13 Reassessment: Patient appears in no apparent distress at this time. No changes from sv previously documented assessment. Patient and/or family updated on plan of care and expected duration. Pain level reassessed. Patient is alert, oriented x 3, equal unlabored respirations, skin warm/dry/pink. 10:38 Reassessment: Patient appears in no apparent distress at this time. Patient and/or iw family updated on plan of care and expected duration. Pain level reassessed. Patient is alert, oriented x 3, equal unlabored respirations, skin warm/dry/pink. Respiratory: Airway is patent Respiratory effort is even, unlabored, Breath sounds are clear bilaterally. Vital Signs: 08:44 BP 207 / 98; Pulse 82; Resp 18; Temp 98.1; Pulse Ox 98% ; Weight 79.38 kg; Height 5 ft. sv 6 in. (167.64 cm); Pain 0/10; 10:02 BP 172 / 91; Pulse 81; Resp 20; Pulse Ox 99% ; sv 10:46 BP 173 / 86; Pulse 80; Resp 16; Pulse Ox 98% ; sv 08:44 Body Mass Index 28.25 (79.38 kg, 167.64 cm) sv ED Course: 08:41 Patient arrived in ED. sv 08:41 Octavia Joya RN is Primary Nurse. sv 08:42 Dakotah Mercado NP is PHCP. pm1 08:42 Manan Roberts MD is Attending Physician. pm1 08:44 Triage completed. sv 08:47 Arm band placed on. sv 08:49 Nurse Practitioner and/or Physician Preschool Assistant to see patient. sv 08:49 Patient has correct armband on for positive identification. Placed in gown. Bed in low sv position. Call light in reach. youth nutritional monitor on. Pulse ox on. NIBP on. Door closed. Head of bed elevated. 09:00 Inserted saline lock: 20 gauge in right antecubital area, using aseptic technique. sv Flushed right antecubital with 5 ml normal saline. 10:38 No provider procedures requiring assistance completed. IV discontinued, intact, iw bleeding controlled, No redness/swelling at site. Pressure dressing applied. Administered Medications: 09:02 Drug: Benadryl 50 mg Route: IVP; Site: right antecubital; sv 10:43 Follow up: Response: No adverse reaction iw 09:05 Drug: Pepcid 20 mg Route: IVP; Site: right antecubital; sv 10:43 Follow up: Response: No adverse reaction iw 09:07 Drug: SOLU-Medrol 80 mg Route: IVP; Site: right antecubital; sv 10:43 Follow up: Response: No adverse reaction iw 09:11 Drug: Tetanus-Diphtheria Toxoid Adult 0.5 ml {Printed [employer] Photographer: [employer]. Exp: sv 09/17/2020. Lot #: [id number]. } Route: IM; Site: right deltoid; 10:43 Follow up: Response: No adverse reaction iw Outcome: 10:27 Discharge ordered by MD. pm1 10:43 Discharged to home ambulatory, with family. iw 10:43 Condition: good 10:43 Discharge instructions given to patient, Instructed on discharge instructions, follow up and referral plans. medication usage, Demonstrated understanding of instructions, follow-up care, medications, Prescriptions given X 3. 10:55 Patient left the ED. eb Signatures: Octavia Joya RN RN Magy Isaac RN RN Dakotah Mercado, [employer] pm1 Omayra Garcia eb Corrections: (The following items were deleted from the chart) 08:47 08:44 BP 207 / 98; Pulse 82bpm; Resp 18bpm; Pulse Ox 98%; Temp 98.1F; Pain 0/10; sv sv
--- NOTE | 2018-10-23 10:28 | EDPHYS ---
Physician Documentation [facility] Name: Brant Marques Age: 53 yrs Sex: Male : 1965 Arrival Date: 10/23/2018 Time: 08:41 Bed 20 Private MD: ED Physician Manan Roberts HPI: 10/23 09:10 This 53 yrs old Male presents to ER via EMS with complaints of High Blood pm1 Pressure, Bee Sting, Dizziness. 09:10 Patient got stung by a red wasp this AM on his drive to work on his upper lip. Patient pm1 went to his job site clinic and he had an elevated blood pressure and dizziness with the pain. No shortness of breath. Presenting with upper lip swelling and pain. Historical: - Allergies: 08:47 No Known Allergies; sv - PMHx: 08:47 Diabetes - NIDDM; Hypertension; sv - PSHx: 08:47 stent; sv - Immunization history:: Adult Immunizations up to date. - Social history:: Smoking status: Patient uses tobacco products, smokes one-half pack cigarettes per day. - Ebola Screening: : No symptoms or risks identified at this time. ROS: 09:10 Constitutional: Negative for fever, chills, and weight loss, Eyes: Negative for injury, pm1 pain, redness, and discharge, Neck: Negative for injury, pain, and swelling, Cardiovascular: Negative for chest pain, palpitations, and edema, Respiratory: Negative for shortness of breath, cough, wheezing, and pleuritic chest pain, Abdomen/GI: Negative for abdominal pain, nausea, vomiting, diarrhea, and constipation, Back: Negative for injury and pain, : Negative for injury, bleeding, discharge, and swelling, MS/Extremity: Negative for injury and deformity, Skin: Negative for injury, rash, and discoloration, Neuro: Negative for headache, weakness, numbness, tingling, and seizure. 09:10 ENT: Positive for upper lip swelling, Negative for sore throat, dental pain, difficulty swallowing, difficulty handling secretions, hoarseness. Exam: 09:10 Constitutional: This is a well developed, well nourished patient who is awake, alert, pm1 and in no acute distress. Head/Face: Normocephalic, atraumatic. Eyes: Pupils equal round and reactive to light, extra-ocular motions intact. Lids and lashes normal. Conjunctiva and sclera are non-icteric and not injected. Cornea within normal limits. Periorbital areas with no swelling, redness, or edema. 09:10 Neck: Trachea midline, no thyromegaly or masses palpated, and no cervical lymphadenopathy. Supple, full range of motion without nuchal rigidity, or vertebral point tenderness. No Meningismus. Chest/axilla: Normal chest wall appearance and motion. Nontender with no deformity. No lesions are appreciated. Cardiovascular: Regular rate and rhythm with a normal S1 and S2. No gallops, murmurs, or rubs. Normal PMI, no JVD. No pulse deficits. Respiratory: Lungs have equal breath sounds bilaterally, clear to auscultation and percussion. No rales, rhonchi or wheezes noted. No increased work of breathing, no retractions or nasal flaring. Abdomen/GI: Soft, non-tender, with normal bowel sounds. No distension or tympany. No guarding or rebound. No evidence of tenderness throughout. Back: No spinal tenderness. No costovertebral tenderness. Full range of motion. Skin: Warm, dry with normal turgor. Normal color with no rashes, no lesions, and no evidence of cellulitis. MS/ Extremity: Pulses equal, no cyanosis. Neurovascular intact. Full, normal range of motion. 09:10 ENT: External ear(s): are unremarkable, Ear canal(s): are normal, TM's: are normal, Nose: is normal, Mouth: Lips: moderate swelling to upper lip, Posterior pharynx: Airway: normal, no evidence of obstruction, patent. 09:10 Neuro: Orientation: is normal, Motor: is normal, moves all fours, Gait: is steady, at a normal pace, without difficulty. Vital Signs: 08:44 BP 207 / 98; Pulse 82; Resp 18; Temp 98.1; Pulse Ox 98% ; Weight 79.38 kg; Height 5 ft. sv 6 in. (167.64 cm); Pain 0/10; 10:02 BP 172 / 91; Pulse 81; Resp 20; Pulse Ox 99% ; sv 10:46 BP 173 / 86; Pulse 80; Resp 16; Pulse Ox 98% ; sv 08:44 Body Mass Index 28.25 (79.38 kg, 167.64 cm) sv MDM: 08:44 Patient medically screened. pm1 10:26 Data reviewed: vital signs. Data interpreted: Pulse oximetry: on room air is 99 %. pm1 Interpretation: normal. Counseling: I had a detailed discussion with the patient and/or guardian regarding: the historical points, exam findings, and any diagnostic results supporting the discharge/admit diagnosis, the need for outpatient follow up, to return to the emergency department if symptoms worsen or persist or if there are any questions or concerns that arise at home. 10/23 08:50 Order name: IV Saline Lock; Complete Time: 09:12 pm1 Administered Medications: 09:02 Drug: Benadryl 50 mg Route: IVP; Site: right antecubital; sv 10:43 Follow up: Response: No adverse reaction iw 09:05 Drug: Pepcid 20 mg Route: IVP; Site: right antecubital; sv 10:43 Follow up: Response: No adverse reaction iw 09:07 Drug: SOLU-Medrol 80 mg Route: IVP; Site: right antecubital; sv 10:43 Follow up: Response: No adverse reaction iw 09:11 Drug: Tetanus-Diphtheria Toxoid Adult 0.5 ml {[employer]: [employer]. Exp: sv 09/17/2020. Lot #: [id number]. } Route: IM; Site: right deltoid; 10:43 Follow up: Response: No adverse reaction iw Disposition: 12:38 Co-signature as Attending Physician, Manan Roberts MD I agree with the assessment and dru plan of care. Disposition: 10/23/18 10:27 Discharged to Home. Impression: Insect bite (nonvenomous) of lip. - Condition is Stable. - Discharge Instructions: Insect Bite. - Prescriptions for Benadryl 25 mg Oral Capsule - take 1 capsule by ORAL route every 6 hours As needed; 30 tablet. Pepcid 20 mg Oral Tablet - take 1 tablet by ORAL route every 12 hours for 5 days; 10 tablet. Medrol (Manuel) 4 mg Oral Tablets, Dose Pack - take 1 tablet by ORAL route as directed - follow package instructions; 1 packet. - Work release form, Medication Reconciliation Form, Thank You Letter, Antibiotic Education, Prescription Opioid Use form. - Follow up: Emergency Department; When: As needed; Reason: Worsening of condition. Follow up: Private Physician; When: 2 - 3 days; Reason: Recheck today's complaints, Continuance of care, Re-evaluation by your physician. - Problem is new. - Symptoms have improved. Signatures: Octavia Joya, RN Manan Pineda MD MD cha Marinas, Patrick, MANAGER OF MAINTENANCE MANAGER OF MAINTENANCE pm1 Omayra Garcia Irene RN iw Corrections: (The following items were deleted from the chart) 10:55 10:27 10/23/2018 10:27 Discharged to Home. Impression: Insect bite (nonvenomous) of eb lip. Condition is Stable. Forms are Medication Reconciliation Form, Thank You Letter, Antibiotic Education, Prescription Opioid Use. Follow up: Emergency Department; When: As needed; Reason: Worsening of condition. Follow up: Private Physician; When: 2 - 3 days; Reason: Recheck today's complaints, Continuance of care, Re-evaluation by your physician. Problem is new. Symptoms have improved. pm1
== END 2018-10-23 10:55 | disposition home or self-care (01) ==
LOC: ER 08:33
DX: T63.461A Toxic effect of venom of wasps, accidental (unintentional), initial encounter (principal); R42 Dizziness and giddiness; I10 Essential (primary) hypertension; E11.9 Type 2 diabetes mellitus without complications; F17.210 Nicotine dependence, cigarettes, uncomplicated
CPT/HCPCS: 90714; 96374; 96375; 99284; J2930